=== PATIENT | female | born 1960 | race Caucasian/White ===

== ENCOUNTER → 2022-03-05 07:40 | Outpatient (CLI) | payer OTHER, SELFPAY ==
[2022-03-05 08:18] LABS: COVID19 -Nasal RAPID Negative (Negative)
== END ==
PROVIDERS: Referring Provider Internal Medicine; Visit Provider Internal Medicine
DX: Z20.822 Contact with and (suspected) exposure to COVID-19 (principal)
CPT/HCPCS: 87635; C9803

== ENCOUNTER → 2022-03-05 07:47 | Outpatient (CLI) | payer OTHER, SELFPAY ==
--- NOTE | 2022-03-11 09:16 | PM.PFT.1 ---
Pulmonary Function Test Referral & Results Date Patient Seen: 03/05/22 Requesting provider: Marko Pantoja Results: The spirometry demonstrates an FVC of 2.94 L which is 95% of predicted. The FEV1 was measured at 2.39 L which is 100% of predicted. The FEV1/FVC ratio was 81 which is 104% of predicted. Following the administration of bronchodilator there was no appreciable change to above normal numbers. Lung volumes show an SVC of 3.01 L which is 104% of predicted. The diffusing capacity was measured at 21.48 which is 99% of predicted. The maximum voluntary ventilation was normal Interpretation: This study demonstrates normal pulmonary function.
== END ==
PROVIDERS: Referring Provider Student in an Organized Health Care Education/Training Program; Visit Provider Student in an Organized Health Care Education/Training Program
DX: R05.3 Chronic cough (principal); Z20.822 Contact with and (suspected) exposure to COVID-19
CPT/HCPCS: 87635; 94060; 94726; 94729; C9803